=== PATIENT | female | born 1990 | race Caucasian/White ===

== ENCOUNTER → 2018-02-20 08:17 | Outpatient (CLI) | payer OTHER, SELFPAY ==
--- NOTE | 2018-02-23 07:30 | PM.PFT.1 ---
Pulmonary Function Test Referral & Results Date Patient Seen: 02/20/18 Requesting provider: Brianna Og Indication: Dyspnea Results: The spirometry demonstrates an FVC of 3.63 L which is 116% of predicted. The FEV1 was measured at 2.45 L which is 90% of predicted. The FEV1/FVC ratio was 67 which is 78% of predicted. Following the administration of bronchodilator there was a 14% improvement in FEV1/FEC ratio and 22% improvement in FEV1 as well as a 93% improvement in FEF 25-75%. Lung volumes show an SVC of 4.12 L which is 113% of predicted. The diffusing capacity was measured at 29.30 which is 127% of predicted. The maximum voluntary ventilation was slightly reduced Interpretation: This study demonstrates mild obstructive lung disease with evidence of significant benefit following bronchodilator Overall this is consistent with a diagnosis of asthma, given lack of abnormality in lung volumes and diffusing capacity to go with the mild obstructive abnormality.
== END ==
PROVIDERS: Visit Provider General Practice
DX: R06.00 Dyspnea, unspecified (principal)
CPT/HCPCS: 94010; 94060; 94726; 94729